=== PATIENT | female | born 1960 | race Caucasian/White ===

== ENCOUNTER 2017-07-18 16:32 | Emergency (ER) | payer MEDICAID ==
[2017-07-18] MEDS ORDERED: IPRATROPIUM/ALBUTEROL 3 ML DEYVIAL IH ONE (17:20)
[2017-07-18] MEDS ORDERED: predniSONE 20 MG TAB PO ONE (17:20)
[2017-07-18] MEDS ORDERED: ALBUTEROL 3 ML DEYVIAL IH ONE ×2 (17:20→19:09)
--- NOTE | 2017-07-18 17:22 | EDPHY ---
H & P Time Seen by Provider: 07/18/17 17:13 HPI/ROS: CHIEF COMPLAINT: Cough and shortness of breath HISTORY OF PRESENT ILLNESS: Patient has been sick for the last 2 weeks, was 1st exposed to her sister's kids and now has been having symptoms for 2 weeks worse over the past 48 hours. She describes cough and worsening wheezing and chest tightness with a bit of shortness of breath. Worse with exertion and lying flat. Symptoms are moderate to severe at this point but not associated with fever or chills or hemoptysis or leg swelling or any chest pain. REVIEW OF SYSTEMS: Eye: no change in vision ENT: no sore throat Cardiac: no chest pain or syncope Pulmonary: HPI Abdomen: no vomiting, diarrhea, abdominal pain Musculoskeletal: no back pain or leg swelling Skin: no rash Neuro: no headache Constitutional: no fever : no urinary symptoms A comprehensive 10 point review of systems is otherwise negative aside from elements mentioned in the history of present illness. PAST MEDICAL HISTORY: For tubal ligation and left foot surgery. Social history: Nonsmoker, family history of asthma. No recent immobilization or prolonged travel. Just moved from [place] to be with her family. General Appearance: Alert and conversant, cooperative. Eyes: No scleral icterus. ENT, Mouth: Normal mucous membranes. Uvula is normal and no angioedema. Respiratory: Bilateral wheezing and prolonged expiratory phase. Cardiovascular: Regular rate and rhythm. Gastrointestinal: Abdomen is soft and non tender. Neurological: Alert and oriented x3. Normally conversant. Face symmetric, normal movement and sensation in all extremities. Skin: Warm and dry, no rashes. Musculoskeletal: No peripheral edema and no joint swelling. no calf tenderness. Psychiatric: Not agitated. Emergency Department course/MDM: Patient clearly has reactive airway disease. Plan for dual nebulizer therapy and oral prednisone discussed and consented. Chest x-ray, if positive would prescribe antibiotics of pneumonia is present. Think this is unlikely to be anemia or pulmonary embolism or ACS. 1830: Chest x-ray shows bronchitis, no pneumonia. 1909: Re-examined, chest x-ray results discussed, still little bit wheezy but speaking in full sentences. Plan for additional nebulizer and discharged with MDI and prednisone burst. Smoking Status: Never smoked Constitutional: Initial Vital Signs Temperature (C) 36.9 C 07/18/17 16:33 Heart Rate 90 07/18/17 16:33 Respiratory Rate 18 07/18/17 16:33 Blood Pressure 127/92 H 07/18/17 16:33 O2 Sat (%) 94 07/18/17 16:33 O2 Delivery Mode Room Air Allergies/Adverse Reactions: No Known Allergies Allergy (Unverified 07/18/17 16:37) Home Medications: Medication Instructions Recorded Albuterol Hfa Anes Only [Proair 2 puffs IH QID #1 mdi 07/18/17 Hfa Icu (*)] predniSONE 40 mg PO DAILY 5 Days tab 07/18/17 Medical Decision Making - Diagnostics Imaging Results: Imaging Impressions Chest X-Ray 07/18/17 17:20 Impression: No pneumonia. - Data Points Medications Given: Discontinued Medications Albuterol (Proventil Neb) 3 ml IH EDNOW ONE Stop: 07/18/17 17:21 Last Admin: 07/18/17 17:38 Dose: 3 ml Albuterol/Ipratropium (Duoneb) 3 ml IH EDNOW ONE Stop: 07/18/17 17:21 Last Admin: 07/18/17 17:38 Dose: 3 ml Prednisone (Prednisone) 60 mg PO EDNOW ONE Stop: 07/18/17 17:21 Last Admin: 07/18/17 17:39 Dose: 60 mg Departure - Departure Disposition: Home, Routine, Self-Care Clinical Impression: Reactive airway disease Qualifiers: Asthma severity: unspecified severity Asthma complication type: with acute exacerbation Qualified Code(s): J45.901 - Unspecified asthma with (acute) exacerbation Condition: Good Instructions: Reactive Airways Disease (ED) Referrals: Deandra Butler MD [Medical Doctor] - As per Instructions Prescriptions: Albuterol Hfa Anes Only [Proair Hfa Icu (*)] 2 puffs IH QID #1 mdi predniSONE 40 mg PO DAILY 5 Days tab
[2017-07-18 20:06] VITALS: BP 119/74; PULSE 114; RESP 24; TEMP 98.2; O2SAT 93
== END 2017-07-18 20:05 | disposition home or self-care (01) ==
DX: J45.901 Unspecified asthma with (acute) exacerbation (principal)